=== PATIENT | female | born 2005 | race Caucasian/White ===

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

== ENCOUNTER 2024-08-16 23:42 | Emergency (ER) | payer OTHER, SELFPAY ==
--- NOTE | 2024-08-16 23:48 | EKG_ITS ---
[address] [address] Test Date: 2024-08-16 Pat Name: Guerline Howell Department: [facility] Room: Gender: Female Lion Tamer: : 2005 Requested By: Order Number: [id number] Reading MD: Tim Monroe MD Measurements Intervals [place] Rate: 73 P: 39 SD: 126 QRS: 77 QRSD: 86 T: 54 QT: 362 QTc: 398 Interpretive Statements Normal sinus rhythm with sinus arrhythmia Electronically Signed On 08-17-2024 7:58:56 PDT by Tim Monroe MD
[2024-08-16 23:53] VITALS: BP 142/90; PULSE 83; RESP 22; TEMP 37.1; O2SAT 99; BMI 20.1
--- NOTE | 2024-08-16 23:59 | DI.RAD.S_ITS ---
PROCEDURE: XR CHEST 1V INDICATIONS: Shortness of breath TECHNIQUE: One view of the chest was acquired. COMPARISON: None. FINDINGS: Surgical changes and devices: None. Lungs and pleura: Lungs are clear. No pleural effusions or pneumothorax. Mediastinum: Mediastinal contours appear normal. Heart size is normal. Bones and chest wall: No suspicious bony lesions. Overlying soft tissues appear unremarkable. IMPRESSION: No acute cardiopulmonary abnormality is seen. No infiltrate or pneumothorax. Dictated by: Obed Cotter M.D. on 08/16/2024 at 23:15 Approved by: Obed Cotter M.D. on 08/16/2024 at 23:16
[2024-08-17 00:35] VITALS: PULSE 73; RESP 17; O2SAT 98
[2024-08-17 00:36] VITALS: BP 115/68; PULSE 78; RESP 22; O2SAT 99
[2024-08-17 00:37] LABS: Add Manual Diff / Slide Review NO; Basophils Absolute Auto 200 /uL (0-100); Basophils Percent Auto 2.8 % (0-2); Eosinophils Absolute Auto 100 /uL (0-450); Eosinophils Percent Auto 1.3 % (2-4); Hematocrit 32.2 % (36-46); Lymphocytes Absolute Auto 1600 /uL (1100-4500); Mean Corpuscular HGB Conc 34.1 % (30-36); Mean Corpuscular Hemoglobin 26.4 PG (26-34); Mean Corpuscular Volume 77.3 fL (80-100); Monocytes Absolute Auto 300 /uL (0-900); Monocytes Percent Auto 5.3 % (3-14); Neutrophils Absolute Auto 3300 /uL (1500-7000); Neutrophils Percent Auto 60.6 % (50-75); Platelet Count 203 X10^3/uL (150-400); Red Blood Cell Count 4.17 X10^6/uL (4.0-5.2); Red Cell Distribution Width 14.5 % (11.6-14.8); White Blood Cell Count 5.5 X10^3/uL (4.5-11.0)
[2024-08-17 00:49] LABS: Alanine Aminotransferase 17 IU/L (<35); Albumin 4.6 g/dL (3.5-5.0); Albumin Globulin Ratio 1.7 (1.0-2.8); Alkaline Phosphatase 56 U/L (38-126); Aspartate Aminotransferase 34 IU/L (14-36); Bilirubin Total 0.3 mg/dL (0.2-1.3); Blood Urea Nitrogen 18 mg/dL (7-17); Calcium 9.1 mg/dL (8.4-10.2); Carbon Dioxide 24 mmol/L (22-32); Chloride 106 mmol/L (98-107); Estimated Glomerular Filt Rate > 60 mL/min (>60); Globulin 2.7 g/dL (1.7-4.1); Glucose 109 mg/dL (70-99); HEMOLYSIS < 15 (0-50); Lactate (Lactic Acid) 0.9 mmol/L (0.7-2.1); Potassium 3.6 mmol/L (3.4-5.1); Sodium 139 mmol/L (137-145); Total Protein 7.3 g/dL (6.3-8.2)
[2024-08-17 01:00] VITALS: BP 108/69; PULSE 76; RESP 18; O2SAT 99
[2024-08-17 01:01] LABS: Troponin I < 0.012 ng/mL (0.01-0.034)
[2024-08-17 01:10] LABS: Influenza A - CEPHEID Flu A NEGATIVE (NEGATIVE); Influenza B - CEPHEID Flu B NEGATIVE (NEGATIVE); Respiratory Syncytial Virus Negative (Negative)
[2024-08-17 01:12] LABS: COVID-19 CEPHEID 4-PLEX PCR Negative (Negative)
[2024-08-17] MEDS: ALBUTEROL 2.5 MG/3 ML NEB (ADULT) INH (01:23)
[2024-08-17 01:30] VITALS: BP 106/63; PULSE 72; RESP 20; O2SAT 100
--- NOTE | 2024-08-17 01:40 | PC.NURSE ---
Pt ambulatory to restroom without difficulty or assistance
--- NOTE | 2024-08-17 01:47 | ED.GENADULT ---
HPI - General Adult General Chief complaint: Shortness of Breath/Dyspnea Stated complaint: SOB, chest tightness x 2 days Time Seen by Provider: 08/17/24 00:07 Source: patient Mode of arrival: Ambulatory History of Present Illness HPI narrative: 19-year-old female has felt shortness of breath through the day today, feels that she might be having some anxiety. Denies chest discomfort. No fevers or chills. Denies cough. Denies history of asthma or inhaler use. She has been prescribed sertraline. She has been prescribed hydroxyzine in the past but not recently. Hydroxyzine was helpful in the past. She denies recent cough, fevers, chills. Related Data Home Medications Medication Instructions Recorded Confirmed Vitamin 03/23/22 Previous Rx's Medication Instructions Recorded acetaminophen 325 mg tablet 650 mg (2 x 325 mg) PO Q6H PRN 03/25/22 Fever/Mild Pain (1-3) #1 tab docusate sodium 100 mg capsule 200 mg (2 x 100 mg) PO DAILY #1 cap 03/25/22 ferrous sulfate 325 mg (65 mg 325 mg PO DAILY #30 tabs 03/25/22 iron) tablet ibuprofen 600 mg tablet 600 mg PO Q6H PRN Fever/Mild Pain 03/25/22 (1-3) #60 tabs oxycodone 5 mg tablet See Rx Instructions .Route 03/25/22 .COMPLEX PRN pain #30 tabs sertraline 50 mg tablet (Zoloft) 25 mg (1/2 x 50 mg) PO BEDTIME #30 03/25/22 tabs hydroxyzine HCl 50 mg tablet 50 mg PO TID PRN anxiety #20 tabs 08/17/24 Allergies Allergy/AdvReac Type Severity Reaction Status Date / Time cefdinir [From Omnicef] Allergy Verified 09/13/21 16:00 Latex, Natural Rubber Allergy Verified 03/23/22 11:21 Penicillins Allergy Verified 03/23/22 11:21 Patient History Medical History (Updated 08/17/24 @ 02:03 by Claudio Josue MD) Adopted Metatarsal fracture Elbow fracture, left Hyperthyroidism Social History details: Single living with partner household members: significant other occupational status: employed Previous occupational history: tree cutting self-employed alcohol intake: former tobacco type: vaping Exam Narrative Exam Narrative: GENERAL: Well-developed patient, in mild distress. HEAD: Atraumatic. Normocephalic. EYES: Pupils equal round and reactive. Extraocular motions intact. No scleral icterus. No injection or drainage. ENT: Nose without bleeding, purulent drainage. Throat without erythema, tonsillar hypertrophy or exudate. Airway patent. NECK: Trachea midline. Non tender CARDIOVASCULAR: Regular rate and rhythm without murmurs, gallops, or rubs. RESPIRATORY: Clear to auscultation. Breath sounds equal bilaterally. No wheezes, rales, or rhonchi. Speaks in full sentences. GASTROINTESTINAL: Abdomen soft, non-tender, nondistended. EXTREMITIES: No edema or joint tenderness. BACK: Nontender without deformity or crepitance. No flank tenderness. NEURO: AOx3. Motor functions grossly nonfocal SKIN: No rash or erythema of visible areas Initial Vital Signs Initial Vital Signs: Vital Signs Temperature 98.7 F 08/16/24 23:53 Pulse Rate 83 08/16/24 23:53 Respiratory Rate 22 08/16/24 23:53 Blood Pressure 142/90 H 08/16/24 23:53 Pulse Oximetry 99 08/16/24 23:53 Oxygen Delivery Method Room Air 08/16/24 23:53 Course Orders Ordered: Discontinued Medications Albuterol (Albuterol 2.5 Mg/3 Ml Neb (Adult)) 2.5 mg INH NOW ONE Stop: 08/17/24 01:12 Last Admin: 08/17/24 01:23 Dose: 2.5 mg Documented By: Hydroxyzine HCl (Hydroxyzine Hcl 25 Mg Tablet) 50 mg PO NOW ONE Stop: 08/17/24 01:59 Last Admin: 08/17/24 02:12 Dose: 50 mg Documented By: ALEAH Methocarbamol (Methocarbamol 500 Mg Tablet) 500 mg PO NOW ONE Stop: 08/17/24 01:29 Last Admin: 08/17/24 01:34 Dose: Not Given Documented By: ALEAH Vital Signs Vital signs: Vital Signs - 8 hr 08/16/24 23:53 08/17/24 00:35 08/17/24 00:36 Temperature 98.7 F Pulse Rate 83 73 Respiratory Rate 22 17 Blood Pressure 142/90 H 115/68 Pulse Oximetry 99 98 Oxygen Delivery Method Room Air 08/17/24 00:36 08/17/24 01:00 08/17/24 01:00 Temperature Pulse Rate 78 76 Respiratory Rate 22 18 Blood Pressure 108/69 Pulse Oximetry 99 99 Oxygen Delivery Method Medical Decision Making Lab Data Lab results reviewed: Yes I reviewed the patient's lab results. Lab results narrative: White blood cell count 5500, hemoglobin 11.0, platelets adequate. Glucose 109. Normal remainder basic metabolic panel. Liver functions normal. Troponin negative. COVID flu RSV negative. Urine test negative. 08/17/24 00:20 08/17/24 00:20 Labs: Lab Results 08/17/24 08/17/24 Range/Units 00:14 00:20 WBC 5.5 (4.5-11.0) X10^3/uL RBC 4.17 (4.0-5.2) X10^6/uL Hgb 11.0 L (12.0-16.0) g/dL Hct 32.2 L (36-46) % MCV 77.3 L (80-100) fL MCH 26.4 (26-34) PG MCHC 34.1 (30-36) % RDW 14.5 (11.6-14.8) % Plt Count 203 (150-400) X10^3/uL Neut % (Auto) 60.6 (50-75) % Lymph % (Auto) 30.0 (25-40) % Hernando % (Auto) 5.3 (3-14) % Eos % (Auto) 1.3 L (2-4) % Baso % (Auto) 2.8 H (0-2) % Neut # (Auto) 3300 (5219-0607) /uL Lymph # (Auto) 1600 (4521-5482) /uL Hernando # (Auto) 300 (0-900) /uL Eos # (Auto) 100 (0-450) /uL Baso # (Auto) 200 H (0-100) /uL Sodium 139 (137-145) mmol/L Potassium 3.6 (3.4-5.1) mmol/L Chloride 106 (98-107) mmol/L Carbon Dioxide 24 (22-32) mmol/L BUN 18 H (7-17) mg/dL Creatinine 0.60 (0.52-1.04) mg/dL Estimated GFR > 60 (>60) mL/min BUN/Creatinine Ratio 30.0 H (6-22) Glucose 109 H (70-99) mg/dL Lactate 0.9 (0.7-2.1) mmol/L Calcium 9.1 (8.4-10.2) mg/dL Total Bilirubin 0.3 (0.2-1.3) mg/dL AST 34 (14-36) IU/L ALT 17 (<35) IU/L Alkaline Phosphatase 56 (38-126) U/L Troponin I < 0.012 (0.01-0.034) ng/mL Total Protein 7.3 (6.3-8.2) g/dL Albumin 4.6 (3.5-5.0) g/dL Globulin 2.7 (1.7-4.1) g/dL Albumin/Globulin Ratio 1.7 (1.0-2.8) SARS-CoV-2 (PCR) Negative (Negative) Influenza A (RT-PCR) Flu a negative (NEGATIVE) Influenza B (RT-PCR) Flu b negative (NEGATIVE) RSV (PCR) Negative (Negative) Point of Care Testing Test Results Negative Point of care testing: Point of Care Testing Test Results Negative Imaging Data Chest x-ray: Radiologist's Impression: [place] [address] XRay Report Signed Patient: Guerline Howell MR#: [id number] : 2005 Acct:[id number] Age/Sex: 19 / F Date of Service: 08/16/24 Loc: ED Accession Number: [id number] Procedure: XR chest 1V Ordering Provider: Claudio Josue MD PROCEDURE: XR CHEST 1V INDICATIONS: Shortness of breath TECHNIQUE: One view of the chest was acquired. COMPARISON: None. FINDINGS: Surgical changes and devices: None. Lungs and pleura: Lungs are clear. No pleural effusions or pneumothorax. Mediastinum: Mediastinal contours appear normal. Heart size is normal. Bones and chest wall: No suspicious bony lesions. Overlying soft tissues appear unremarkable. IMPRESSION: No acute cardiopulmonary abnormality is seen. No infiltrate or pneumothorax. Dictated by: Obed Cotter M.D. on 08/16/2024 at 23:15 Approved by: Obed Cotter M.D. on 08/16/2024 at 23:16 ECG Data Attestation: I personally reviewed and interpreted this ECG as follows: Interpretation: Normal sinus rhythm with rate of 73. No obvious ST segment elevation or depression changes. Some movement artifact noted inferior leads. VA 126, QRS 86, QTC 398. MDM Narrative Medical decision making narrative: 19-year-old female with history of anxiety, feel short of breath. Chest x-ray and EKG and lab testing unremarkable, ordered from triage. COVID flu RSV swab negative. Trial of SVN albuterol. No significant change after breathing treatment. She feels this is most consistent with anxiety. We would like hydroxyzine trial, has ride home. Oral hydroxyzine given, prescription sent to her pharmacy. Follow up with PCP advised. Continue chronic medications advised. Discharge Plan Departure Patient Disposition: Home Clinical Impression: Shortness of breath, Anxiety Activity Restrictions/Additional Instructions: Shortness of breath. No fever on triage. No recent cough symptoms. History of anxiety. Prior response to hydroxyzine. EKG and chest x-ray and labs unremarkable. No response to breathing treatment albuterol nebulizer. Trial of hydroxyzine, 1st dose given in the emergency department, prescription sent to your pharmacy. Continue your other chronic medications. Follow up with your regular doctor later this week to reassess your symptoms on new therapy. Return earlier to this/nearest emergency department for any change worsening symptoms or any concerns prior. Prescriptions: New hydroxyzine HCl 50 mg tablet 50 mg PO TID PRN (Reason: anxiety) Qty: 20 0RF No Action Vitamin acetaminophen 325 mg Tablet 650 mg PO Q6H PRN (Reason: Fever/Mild Pain (1-3)) Qty: 1 0RF docusate sodium 100 mg Capsule 200 mg PO DAILY Qty: 1 0RF ferrous sulfate 325 mg (65 mg iron) Tablet 325 mg PO DAILY Qty: 30 0RF ibuprofen 600 mg Tablet 600 mg PO Q6H PRN (Reason: Fever/Mild Pain (1-3)) Qty: 60 1RF sertraline [Zoloft] 50 mg Tablet 25 mg PO BEDTIME Qty: 30 1RF Rx Instructions: 0.5 tab daily for 2 weeks, then increase to one tab daily oxycodone 5 mg tablet See Rx Instructions .ROUTE .COMPLEX PRN (Reason: pain) Qty: 30 0RF Rx Instructions: 1-2 tablets by mouth every 4-6 hours as needed for pain Stand Alone Forms: Patient Portal/API/Survey
[2024-08-17 02:01] VITALS: BP 113/66; PULSE 80; RESP 18; O2SAT 100
[2024-08-17] MEDS: hydrOXYzine HCL 25 MG TABLET 50 MG PO (02:12)
== END 2024-08-17 02:17 | disposition home or self-care (01) ==
PROVIDERS: Emergency Provider Emergency Medicine
DX: R06.02 Shortness of breath (principal); F41.9 Anxiety disorder, unspecified
CPT/HCPCS: 0241U; 36415; 71045; 80053; 81025; 83605; 84484; 85025; 93005; 93010; 99284; A9270; J7613

== ENCOUNTER → 2024-10-29 15:41 | Outpatient (CLI) | payer OTHER, SELFPAY ==
[2024-10-29 17:03] LABS: Add Manual Diff / Slide Review NO; Hematocrit 30.2 % (36-46); Hemoglobin 10.1 g/dL (12.0-16.0); Lymphocytes Absolute Auto 2000 /uL (1100-4500); Mean Corpuscular HGB Conc 33.4 % (30-36); Mean Corpuscular Hemoglobin 25.4 PG (26-34); Mean Corpuscular Volume 76.1 fL (80-100); Platelet Count 230 X10^3/uL (150-400)
[2024-10-29 18:07] LABS: HEMOLYSIS < 15 (0-50); Iron 44 ug/dL (37-170)
[2024-10-29 18:09] LABS: Alanine Aminotransferase 22 IU/L (<35); Albumin 4.2 g/dL (3.5-5.0); Albumin Globulin Ratio 1.7 (1.0-2.8); Alkaline Phosphatase 69 U/L (38-126); Blood Urea Nitrogen 11 mg/dL (7-17); Calcium 8.8 mg/dL (8.4-10.2); Carbon Dioxide 28 mmol/L (22-32); Chloride 103 mmol/L (98-107); Estimated Glomerular Filt Rate > 60 mL/min (>60); Globulin 2.5 g/dL (1.7-4.1); Glucose 89 mg/dL (70-99); HEMOLYSIS < 15 (0-50); Potassium 4.0 mmol/L (3.4-5.1); Sodium 136 mmol/L (137-145); Total Protein 6.7 g/dL (6.3-8.2)
[2024-10-29 18:21] LABS: Percent Iron Saturation 11 % (15-50); Total Iron Binding Capacity 418 ug/dL (265-497); Transferrin 343 mg/dL (206-381)
[2024-10-29 18:35] LABS: TSH w/ Reflex to FT4 1.12 uIU/mL (0.47-4.68)
[2024-10-29 18:47] LABS: Ferritin 4 ng/mL (6-137)
== END ==
PROVIDERS: PCP Family Medicine; Referring Provider Family Medicine; Visit Provider Family Medicine
DX: R63.4 Abnormal weight loss (principal); F41.0 Panic disorder [episodic paroxysmal anxiety]; R00.2 Palpitations
CPT/HCPCS: 36415; 80053; 82728; 83540; 83550; 84443; 85025